=== PATIENT | female | born 1950 | race African-American/Black ===

== ENCOUNTER 2017-07-26 09:16 | Inpatient (IN) ==
[2017-07-26] MEDS ORDERED: ONDANSETRON 4 MG/2 ML VIAL IV STA (09:34)
[2017-07-26] MEDS ORDERED: SODIUM CHLORIDE 0.9% 500 ML IV STA (09:34)
[2017-07-26] MEDS ORDERED: metroNIDAZOLE INJ 500 MG in PREMIX 1 EACH IV STA (09:34)
[2017-07-26] MEDS ORDERED: DICYCLOMINE 20 MG/2 ML AMP IM ONE ×2 (09:34→10:10)
[2017-07-26] MEDS ORDERED: PANTOPRAZOLE 40 MG VIAL IV STA (09:34)
[2017-07-26 10:09] LABS: Basophils % 0.3 % (0.0-0.8); Eosinophils % 0.1 % (0.00-10.9); Hematocrit 36.3 VOL% (35.7-47.0); Hemoglobin 11.8 GM/DL (12.0-16.0); Immature Granulocytes % 0.4 %; Immature Granulocytes Absolute 0.05 #; Lymphocytes # 1.6 10*3/uL (1.4-4.0); Lymphocytes % 14.2 % (21.3-54.2); Mean Corpuscular HGB Conc 32.5 GM/DL (32-36); Mean Corpuscular Hemoglobin 26 PG (27-34); Mean Corpuscular Volume 80.8 FL (87-102); Mean Platelet Volume 10.3 FL (9.6-12.0); Monocytes % 8.4 % (1.7-12.7); Neutrophils # 8.9 10*3/uL (1.4-7.4); Neutrophils % 76.6 % (38.7-73.9); Platelet Count 339 T/CUMM (130-400); Red Blood Count 4.49 MC/CUMM (3.8-5.5); Red Cell Distribution Width 14.1 % (9.3-17.3); White Blood Count 11.6 T/CUMM (4-12)
[2017-07-26] MEDS ORDERED: metroNIDAZOLE 500 MG/100 ML PREMIX IV ONE (10:10)
[2017-07-26] MEDS ORDERED: ONDANSETRON 4 MG/2 ML VIAL ONE (10:10)
[2017-07-26] MEDS ORDERED: PANTOPRAZOLE 40 MG VIAL IV ONE (10:10)
[2017-07-26 10:30] LABS: Lactic Acid 1.1 MMOL/L (0.4-2.0)
[2017-07-26 10:31] LABS: Alanine Aminotransferase 13 U/L (13-56); Albumin 3.1 G/DL (3.4-5.0); Alkaline Phosphatase 61 U/L (45-117); Amylase 45 U/L (25-115); Aspartate Amino Transferase 11 U/L (0-37); Blood Urea Nitrogen 18 MG/DL (7-18); Calcium 8.9 MG/DL (8.5-10.1); Glucose 108 MG/DL (74-106); Osmolality,Calculated 279.5 MOS/KG (273-304); Potassium 3.9 MMOL/L (3.5-5.1); Sodium 139 MMOL/L (136-145); Total Protein 6.5 G/DL (6.4-8.3); Troponin I Only < 0.015 NG/ML (0.00-0.045)
[2017-07-26 12:35] LABS: Apearance,Urine CLEAR (Clear); Bacteria,Urine Occasional /HPF (Few); Bilirubin,Urine Negative (Negative); Blood, Urine Negative (Negative); Glucose,Urine (UA) Negative (Negative); Ketones,Urine Negative (Negative); Nitrite,Urine Negative (Negative); Protein,Urine Negative; RBC,Urine <1 /HPF (0-4); Squamous Epithelial Cell,Urine Occasional /HPF (0-10); Urine Color Straw (Yellow); Urine Specific Gravity 1.004 (1.001-1.035); Urine Urobilinogen < 2.0 EU/DL (0.2-1.0); WBC,Urine <1 /HPF (0-6)
[2017-07-26] MEDS ORDERED: HYDROmorphone 2 MG/1 ML VIAL IV PRN (14:18)
[2017-07-26] MEDS ORDERED: MORPHINE 4 MG/1 ML VIAL IV PRN (14:18)
[2017-07-26] MEDS ORDERED: MAGNESIUM SULF RIDER 2 GM in PREMIX 1 EACH IV PRN (14:18)
[2017-07-26] MEDS ORDERED: MAGNESIUM SULF RIDER 4 GM in PREMIX 1 EACH IV PRN (14:18)
[2017-07-26] MEDS ORDERED: MONTELUKAST 10 MG TABLET PO PRN (15:20)
[2017-07-26] MEDS ORDERED: ALBUTEROL 2.5 MG/3 ML NEB RESP TX PRN (15:20)
[2017-07-26] MEDS ORDERED: HYDROmorphone 2 MG/1 ML VIAL ONE (16:35)
[2017-07-26] MEDS: CIPROFLOXACIN INJ 400 MG in PREMIX 1 EACH IV SCH (17:49)
[2017-07-26] MEDS: SODIUM CHLORIDE 0.45% 1,000 ML IV SCH (17:49)
[2017-07-26] MEDS: metroNIDAZOLE INJ 500 MG in PREMIX 1 EACH IV SCH ×2 (17:49→21:42)
[2017-07-26] MEDS ORDERED: CYCLOBENZAPRINE 10 MG TABLET PO PRN (18:58)
[2017-07-26] MEDS ORDERED: LISINOPRIL 5 MG TABLET PO SCH (21:00)
[2017-07-26] MEDS: ASPIRIN EC 81 MG TABLET PO SCH (21:40)
[2017-07-26] MEDS: ATORVASTATIN 40 MG TABLET PO SCH (21:40)
[2017-07-27] MEDS: CIPROFLOXACIN INJ 400 MG in PREMIX 1 EACH IV SCH ×2 (02:54→14:00)
[2017-07-27 05:01] LABS: Basophils % 0.2 % (0.0-0.8); Eosinophils % 0.3 % (0.00-10.9); Hematocrit 31.3 VOL% (35.7-47.0); Hemoglobin 10.2 GM/DL (12.0-16.0); Immature Granulocytes % 0.4 %; Immature Granulocytes Absolute 0.04 #; Lymphocytes # 1.2 10*3/uL (1.4-4.0); Lymphocytes % 11.9 % (21.3-54.2); Mean Corpuscular HGB Conc 32.6 GM/DL (32-36); Mean Corpuscular Hemoglobin 26 PG (27-34); Mean Corpuscular Volume 80.5 FL (87-102); Mean Platelet Volume 10.3 FL (9.6-12.0); Monocytes # 0.8 10*3/uL (0.11-0.8); Monocytes % 8.1 % (1.7-12.7); Neutrophils % 79.1 % (38.7-73.9); Platelet Count 299 T/CUMM (130-400); Red Blood Count 3.89 MC/CUMM (3.8-5.5); White Blood Count 10.1 T/CUMM (4-12)
[2017-07-27] MEDS: metroNIDAZOLE INJ 500 MG in PREMIX 1 EACH IV SCH ×4 (05:06→20:29)
[2017-07-27 05:36] LABS: Albumin 2.5 G/DL (3.4-5.0); Osmolality,Calculated 274.7 MOS/KG (273-304); Potassium 3.8 MMOL/L (3.5-5.1); Total Protein 5.5 G/DL (6.4-8.3)
[2017-07-27] MEDS: LEVOTHYROXINE 25 MCG TABLET PO SCH (06:30)
[2017-07-27] MEDS ORDERED: PROPOFOL 200 MG/20 ML VIAL IV ONE (07:43)
[2017-07-27] MEDS ORDERED: GLYCOPYRROLATE 0.4 MG/2 ML VIAL ONE (07:43)
[2017-07-27] MEDS ORDERED: PHENYLEPHRINE 1 MG/10 ML SYRINGE IV ONE (07:43)
[2017-07-27] MEDS ORDERED: LIDOCAINE 2% 5 ML VIAL ONE (07:43)
[2017-07-27] MEDS: PANTOPRAZOLE 40 MG VIAL IV SCH (09:16)
[2017-07-27] MEDS: SODIUM CHLORIDE 0.45% 1,000 ML IV SCH ×2 (09:20→20:30)
[2017-07-27] MEDS: ALUMINUM/MAGNES/SIMETH MAX STR 30 ML UDCUP PO PRN (13:59)
[2017-07-27] MEDS: ONDANSETRON 4 MG/2 ML VIAL IV PRN ×2 (15:57→20:31)
[2017-07-27] MEDS: ENOXAPARIN 40 MG/0.4 ML SYRINGE SUBCUT SCH (20:29)
[2017-07-28] MEDS: ATORVASTATIN 40 MG TABLET PO SCH ×2 (00:18→21:59)
[2017-07-28] MEDS: ASPIRIN EC 81 MG TABLET PO SCH ×2 (00:18→21:59)
[2017-07-28] MEDS: CIPROFLOXACIN INJ 400 MG in PREMIX 1 EACH IV SCH ×2 (02:31→13:26)
[2017-07-28] MEDS: metroNIDAZOLE INJ 500 MG in PREMIX 1 EACH IV SCH ×4 (03:50→21:21)
[2017-07-28 05:18] LABS: Basophils % 0.3 % (0.0-0.8); Eosinophils # 0.1 10*3/uL (0.0-0.87); Eosinophils % 1.1 % (0.00-10.9); Hematocrit 30.8 VOL% (35.7-47.0); Hemoglobin 9.7 GM/DL (12.0-16.0); Immature Granulocytes % 0.3 %; Immature Granulocytes Absolute 0.02 #; Lymphocytes # 1.4 10*3/uL (1.4-4.0); Lymphocytes % 21.5 % (21.3-54.2); Mean Corpuscular HGB Conc 31.5 GM/DL (32-36); Mean Corpuscular Hemoglobin 26 PG (27-34); Mean Corpuscular Volume 83.5 FL (87-102); Mean Platelet Volume 10.3 FL (9.6-12.0); Monocytes # 0.6 10*3/uL (0.11-0.8); Monocytes % 9.2 % (1.7-12.7); Neutrophils # 4.5 10*3/uL (1.4-7.4); Neutrophils % 67.6 % (38.7-73.9); Platelet Count 265 T/CUMM (130-400); Red Blood Count 3.69 MC/CUMM (3.8-5.5); Red Cell Distribution Width 13.9 % (9.3-17.3); White Blood Count 6.6 T/CUMM (4-12)
[2017-07-28 05:54] LABS: % Iron Saturation 17.8 % (18-50); Ferritin 149.6 ng/ml (8-252)
[2017-07-28] MEDS: LEVOTHYROXINE 25 MCG TABLET PO SCH (06:01)
[2017-07-28 06:02] LABS: Folate 11.3 NG/ML (5.4-24.0); Vitamin B12 992 PG/ML (211-911)
[2017-07-28 06:57] LABS: Sedimentation Rate-Westergren 75 MM/HR (0-30)
[2017-07-28] MEDS: PANTOPRAZOLE 40 MG VIAL IV SCH (08:20)
[2017-07-28] MEDS: SODIUM CHLORIDE 0.45% 1,000 ML IV SCH ×2 (08:24→19:30)
[2017-07-28] MEDS ORDERED: IRON SUCROSE 300 MG in SODIUM CHLORIDE 0.9% 100 ML IV ONE (09:00)
[2017-07-28 10:49] LABS: Hemoglobin A1 (Alkaline) 97.7 % (96.5-98.5); Hemoglobin A2 (Alkaline) 2.3 % (1.5-3.5)
[2017-07-28] MEDS: ALUMINUM/MAGNES/SIMETH MAX STR 30 ML UDCUP PO PRN (17:02)
[2017-07-28] MEDS: ONDANSETRON 4 MG/2 ML VIAL IV PRN (19:55)
[2017-07-28] MEDS: ENOXAPARIN 40 MG/0.4 ML SYRINGE SUBCUT SCH (21:58)
[2017-07-29] MEDS: CIPROFLOXACIN INJ 400 MG in PREMIX 1 EACH IV SCH (02:23)
[2017-07-29] MEDS: metroNIDAZOLE INJ 500 MG in PREMIX 1 EACH IV SCH ×2 (04:37→09:47)
[2017-07-29 05:49] LABS: Basophils % 0.4 % (0.0-0.8); Eosinophils # 0.1 10*3/uL (0.0-0.87); Eosinophils % 1.8 % (0.00-10.9); Hematocrit 28.8 VOL% (35.7-47.0); Hemoglobin 9.3 GM/DL (12.0-16.0); Immature Granulocytes % 0.2 %; Immature Granulocytes Absolute 0.01 #; Lymphocytes # 1.1 10*3/uL (1.4-4.0); Lymphocytes % 22.4 % (21.3-54.2); Mean Corpuscular HGB Conc 32.3 GM/DL (32-36); Mean Corpuscular Hemoglobin 26 PG (27-34); Mean Corpuscular Volume 81.8 FL (87-102); Mean Platelet Volume 10.3 FL (9.6-12.0); Monocytes # 0.5 10*3/uL (0.11-0.8); Monocytes % 10.8 % (1.7-12.7); Neutrophils # 3.2 10*3/uL (1.4-7.4); Neutrophils % 64.4 % (38.7-73.9); Platelet Count 298 T/CUMM (130-400); Red Blood Count 3.52 MC/CUMM (3.8-5.5); White Blood Count 4.9 T/CUMM (4-12)
[2017-07-29] MEDS: LEVOTHYROXINE 25 MCG TABLET PO SCH (05:59)
[2017-07-29 06:36] LABS: Alanine Aminotransferase 9 U/L (13-56); Albumin 2.2 G/DL (3.4-5.0); Alkaline Phosphatase 50 U/L (45-117); Aspartate Amino Transferase 10 U/L (0-37); Bilirubin,Total < 0.39 MG/DL (0.2-1.0); Blood Urea Nitrogen 7 MG/DL (7-18); Calcium 7.4 MG/DL (8.5-10.1); Glucose 99 MG/DL (74-106); Osmolality,Calculated 280.1 MOS/KG (273-304); Potassium 4.2 MMOL/L (3.5-5.1); Sodium 142 MMOL/L (136-145)
[2017-07-29] MEDS: SODIUM CHLORIDE 0.45% 1,000 ML IV SCH (07:50)
[2017-07-29] MEDS: PANTOPRAZOLE 40 MG VIAL IV SCH (09:45)
[2017-07-29 11:44] VITALS: BP 113/60
== END 2017-07-29 13:20 | disposition home or self-care (01) | DRG 392 ==
LOC: N.ED 09:16 → N.EDINP 14:15 → N.2E 16:53
PROVIDERS: ADMIT Hospitalist; ATTEND Hospitalist

== ENCOUNTER 2022-04-26 10:27 | Observation (INO) ==
[2022-04-26] MEDS ORDERED: ASPIRIN 325 MG TABLET ONE (11:04)
[2022-04-26] MEDS ORDERED: NITROGLYCERIN SL 0.4 MG TABLET SL ONE (11:04)
[2022-04-26] MEDS ORDERED: ENOXAPARIN 100 MG/ML SYRINGE SUBCUT STA (11:06)
[2022-04-26] MEDS ORDERED: NITROGLYCERIN SL 0.4 MG TABLET SL PRN (11:06)
[2022-04-26] MEDS ORDERED: ASPIRIN 325 MG TABLET PO STA (11:06)
[2022-04-26] MEDS ORDERED: ONDANSETRON 4 MG/2 ML VIAL ONE (11:09)
[2022-04-26 11:12] LABS: Basophils % 0.4 % (0.0-0.8); Eosinophils % 0.7 % (0.00-10.9); Hematocrit 35.8 VOL% (35.7-47.0); Immature Granulocytes % 0.2 %; Immature Granulocytes Absolute 0.01 #; Lymphocytes # 1.5 10*3/uL (1.4-4.0); Lymphocytes % 27.2 % (21.3-54.2); Mean Corpuscular HGB Conc 30.7 GM/DL (32-36); Mean Corpuscular Volume 84.6 FL (87-102); Mean Platelet Volume 9.6 FL (9.6-12.0); Monocytes # 0.3 10*3/uL (0.11-0.8); Monocytes % 5.5 % (1.7-12.7); Platelet Count 359 T/CUMM (130-400); Red Blood Count 4.23 MC/CUMM (3.8-5.5); Red Cell Distribution Width 15.5 % (9.3-17.3); White Blood Count 5.6 T/CUMM (4-12)
[2022-04-26 11:33] LABS: Alanine Aminotransferase 16 U/L (13-56); Albumin 3.2 G/DL (3.4-5.0); Alkaline Phosphatase 67 U/L (45-117); Aspartate Amino Transferase 19 U/L (0-37); Bilirubin,Total < 0.39 MG/DL (0.20-1.00); Blood Urea Nitrogen 14 MG/DL (7-18); Calcium 8.7 MG/DL (8.5-10.1); Carbon Dioxide 26 MMOL/L (21-32); Chloride 115 MMOL/L (98-107); Glucose 103 MG/DL (74-106); Osmolality,Calculated 288.7 MOS/KG (273-304); Potassium 4.3 MMOL/L (3.5-5.1); Sodium 145 MMOL/L (136-145); Total Protein 6.5 G/DL (6.4-8.2)
[2022-04-26] MEDS ORDERED: ACETAMINOPHEN 325 MG TABLET PO PRN (12:40)
[2022-04-26] MEDS ORDERED: MORPHINE 2 MG/1 ML SYRINGE IV PRN (12:40)
[2022-04-26] MEDS ORDERED: hydrALAZINE 20 MG/1 ML VIAL IV PRN (12:40)
[2022-04-26] MEDS ORDERED: ONDANSETRON 4 MG/2 ML VIAL IV PRN (12:40)
[2022-04-26] MEDS ORDERED: BUTALBITAL/ACETAMIN/CAFFEINE 50-325-40 MG TABLET PO PRN (12:43)
[2022-04-26] MEDS ORDERED: PNEUMOCOCCAL VACCINE (13 VALENT) 0.5 ML SYRINGE IM ONE (14:07)
[2022-04-26] MEDS ORDERED: PNEUMOCOCCAL VACCINE (20 VALENT) 0.5 ML SYRINGE IM ONE (14:30)
[2022-04-26] MEDS: METHOCARBAMOL 750 MG TABLET PO SCH ×2 (17:07→21:45)
[2022-04-26] MEDS ORDERED: rOPINIRole 1 MG TABLET PO SCH (21:00)
[2022-04-26] MEDS ORDERED: ROSUVASTATIN 20 MG TABLET PO SCH (21:00)
[2022-04-26] MEDS ORDERED: AMITRIPTYLINE 25 MG TABLET PO SCH (21:00)
[2022-04-26] MEDS: ASCORBIC ACID 500 MG TABLET PO SCH (22:04)
[2022-04-27 06:20] LABS: Basophils % 0.4 % (0.0-0.8); Eosinophils # 0.1 10*3/uL (0.0-0.87); Eosinophils % 1.2 % (0.00-10.9); Hematocrit 31.4 VOL% (35.7-47.0); Hemoglobin 9.8 GM/DL (12.0-16.0); Immature Granulocytes % 0.2 %; Immature Granulocytes Absolute 0.01 #; Lymphocytes # 1.9 10*3/uL (1.4-4.0); Lymphocytes % 38.8 % (21.3-54.2); Mean Corpuscular HGB Conc 31.2 GM/DL (32-36); Mean Corpuscular Volume 85.3 FL (87-102); Mean Platelet Volume 9.8 FL (9.6-12.0); Monocytes # 0.3 10*3/uL (0.11-0.8); Monocytes % 6.5 % (1.7-12.7); Neutrophils % 52.9 % (38.7-73.9); Platelet Count 297 T/CUMM (130-400); Red Blood Count 3.68 MC/CUMM (3.8-5.5); Red Cell Distribution Width 15.4 % (9.3-17.3); White Blood Count 4.9 T/CUMM (4-12)
[2022-04-27 06:35] LABS: Calcium 8.2 MG/DL (8.5-10.1); Potassium 4.2 MMOL/L (3.5-5.1); Risk Ratio 3.11; VLDL Cholesterol 22.8 MG/DL
[2022-04-27] MEDS: ASPIRIN CHEW 81 MG TABLET PO SCH ×2 (08:35→09:54)
[2022-04-27] MEDS: METHOCARBAMOL 750 MG TABLET PO SCH (08:36)
[2022-04-27] MEDS: ASCORBIC ACID 500 MG TABLET PO SCH ×2 (08:36→09:54)
[2022-04-27] MEDS: hydroCHLOROthiazide 25 MG TABLET PO SCH ×2 (08:36→09:54)
[2022-04-27] MEDS: PANTOPRAZOLE 40 MG TABLET PO SCH ×2 (08:36→09:54)
[2022-04-27] MEDS: LEVOTHYROXINE 25 MCG TABLET PO SCH ×2 (08:37→09:54)
[2022-04-27] MEDS ORDERED: CHOLECALCIFEROL 1,000 UNIT TABLET PO SCH (09:00)
[2022-04-27] MEDS ORDERED: ENOXAPARIN 40 MG/0.4 ML SYRINGE SUBCUT SCH (09:00)
[2022-04-27] MEDS ORDERED: PNEUMOCOCCAL VACCINE (20 VALENT) 0.5 ML SYRINGE IM ONE (09:00)
[2022-04-27] MEDS ORDERED: ALUM/MAG/SIMETH/LIDO VISC 1:1 30 ML BOTTLE PO ONE (09:29)
[2022-04-27] MEDS ORDERED: KETOROLAC 30 MG/1 ML VIAL IV ONE (09:29)
[2022-04-27 12:19] VITALS: BP 141/70
== END 2022-04-27 13:48 | disposition home or self-care (01) ==
LOC: N.ED 10:27 → N.EDINP 10:27 → SUATTDRO 12:40 → N.2W 13:39
PROVIDERS: ADMIT Internal Medicine Geriatric Medicine; ATTEND Internal Medicine